=== PATIENT | female | born 1955 | race Caucasian/White ===

== ENCOUNTER 2016-10-03 09:28 | Emergency (ER) | payer SELFPAY | END 2016-10-03 10:40 | disposition home or self-care (01) | LOC: ER 09:28 | DX: S29.012A Strain of muscle and tendon of back wall of thorax, initial encounter (principal); X50.3XXA Overexertion from repetitive movements, initial encounter; Y93.H3 Activity, building and construction; J06.9 Acute upper respiratory infection, unspecified; H69.92 Unspecified Eustachian tube disorder, left ear; J44.9 Chronic obstructive pulmonary disease, unspecified; K21.9 Gastro-esophageal reflux disease without esophagitis; I10 Essential (primary) hypertension; F17.210 Nicotine dependence, cigarettes, uncomplicated; Z79.899 Other long term (current) drug therapy; Z79.82 Long term (current) use of aspirin; Z88.1 Allergy status to other antibiotic agents | CPT/HCPCS: 71020; 99283; 99283-25 ==

== ENCOUNTER 2016-10-05 10:08 | Emergency (ER) | payer SELFPAY | END 2016-10-05 12:58 | disposition home or self-care (01) | LOC: ER 10:08 | DX: J06.9 Acute upper respiratory infection, unspecified (principal); S13.9XXA Sprain of joints and ligaments of unspecified parts of neck, initial encounter; S43.402A Unspecified sprain of left shoulder joint, initial encounter; M62.838 Other muscle spasm; X50.3XXA Overexertion from repetitive movements, initial encounter; Y93.E9 Activity, other interior property and clothing maintenance; Y92.009 Unspecified place in unspecified non-institutional (private) residence as the place of occurrence of the external cause; I10 Essential (primary) hypertension; F17.210 Nicotine dependence, cigarettes, uncomplicated; Z79.899 Other long term (current) drug therapy; Z79.82 Long term (current) use of aspirin | CPT/HCPCS: 71250; 99283; 99283-25 ==